=== PATIENT | female | born 1950 | race Caucasian/White ===

== ENCOUNTER 2021-07-22 08:03 | Inpatient (IN) ==
[2021-07-20 22:08] LABS: Basophils # (Auto) 0.03 K/mcL (0.00-0.30); Basophils % (Auto) 0.4 % (0.0-2.0); Eosinophils # (Auto) 0.06 K/mcL (0.00-0.70); Eosinophils % (Auto) 0.7 % (0.0-7.0); Hematocrit 37.4 % (34.1-44.9); Hemoglobin 11.3 g/dL (11.2-15.7); Lymphocytes # (Auto) 1.12 K/mcL (1.50-4.80); Lymphocytes % (Auto) 13.9 % (15.5-49.0); Mean Corpuscular HGB Conc 30.2 g/dL (31.0-36.0); Mean Platelet Volume 9.5 fL (7.4-10.4); Monocytes # (Auto) 0.62 K/mcL (0.10-0.90); Monocytes % (Auto) 7.7 % (1.0-12.0); Neutrophils % (Auto) 77.3 % (38.0-78.0); Platelet Count 239 K/mcL (140-440); RBC 4.35 M/mcL (3.59-5.38); Red Cell Distribution Width 14.9 % (11.5-14.5); WBC 8.1 K/mcL (4.5-11.0)
[2021-07-20 22:18] LABS: INR 2.6 (0.9-1.1); Partial Thromboplastin Time 44.9 sec (20.0-37.0); Prothrombin Time 29.4 sec (11.9-14.5)
[2021-07-20 22:48] LABS: ALT/SGPT 35 U/L (<40); AST/SGOT 25 U/L (<32); Albumin 3.7 gm/dL (3.2-5.2); Albumin/Globulin Ratio 1.3 (1.0-2.3); Alkaline Phosphatase 112 U/L (39-117); Bilirubin,Total 0.4 mg/dL (0.1-1.0); Blood Urea Nitrogen 11 mg/dL (8-23); Calcium 9.4 mg/dL (8.6-10.4); Carbon Dioxide 25 mmol/L (22-30); Chloride 106 mmol/L (96-108); Globulin 2.9 gm/dL (2.2-3.7); Glomerular Filtration Rate 57; Glucose 121 mg/dL (70-105)
[2021-07-20 23:09] LABS: Estimated Average Glucose(eAG) 163 mg/dL; Hemoglobin A1C 7.3 % Hgb (4.0-6.0)
--- NOTE | 2021-07-21 08:18 | XRay Report ---
HISTORY: Preop for excision of a right buttock necrotic mass FINDINGS: Prominent increased interstitial lung markings are present bilaterally, most apparent around the right hilum and in the right lower lobe. These are new findings since 01/15/21. There is no consolidating infiltrate or mass. No pleural effusion is present. The heart size is normal. Aorta is mildly tortuous. IMPRESSION: Mild nonspecific interstitial lung disease. This could be due to an inflammatory process and less likely pulmonary vascular congestion. This is unlikely due to pulmonary fibrosis since the lungs were clear six months ago. Interpreted and Authenticated by: Chino Morin 07/21/21
[~2021-07-22 08:03] MED LIST: CLINDAMYCIN 600 MG in DEXTROSE 5% IN WATER 50 ML IV SCH; VANCOMYCIN 2,000 MG in 0.9 % SODIUM CHLORIDE 500 ML IV SCH
[2021-07-22 08:58] LABS: POC INR 1.7 (0.8-1.2); POC Pro Time 19.6 sec (11.9-14.5)
[2021-07-22] MEDS ORDERED: GLYCOPYRROLATE 0.2 MG/ML VIAL IV ONE (09:15)
[2021-07-22] MEDS ORDERED: ESMOLOL 100 MG/10 ML VIAL IV ONE (09:15)
[2021-07-22] MEDS ORDERED: KETAMINE 50 MG/ML Syringe (ANEST) IV ONE (09:15)
[2021-07-22] MEDS ORDERED: ONDANSETRON 4 MG/2 ML VIAL ONE (09:15)
[2021-07-22] MEDS ORDERED: PROPOFOL 200 MG/20 ML VIAL IV ONE (09:15)
[2021-07-22] MEDS ORDERED: LIDOCAINE HCL/PF 100 MG/5 ML SYRINGE IV ONE (09:15)
[2021-07-22] MEDS ORDERED: DEXAMETHASONE 10 MG/ML VIAL ONE (09:15)
[2021-07-22] MEDS ORDERED: fentaNYL 250 MCG/5 ML VIAL IV ONE (09:15)
[2021-07-22] MEDS ORDERED: NALOXONE HCL 0.4 MG/ML VIAL IV PRN (09:35)
[2021-07-22] MEDS ORDERED: METHOCARBAMOL 1,000 MG/10 ML VIAL IV PRN (09:35)
[2021-07-22] MEDS ORDERED: LABETALOL 5 MG/ML ML IV PRN (09:35)
[2021-07-22] MEDS ORDERED: BENZOCAINE/MENTHOL 1 LOZENGE PO PRN (09:35)
[2021-07-22] MEDS ORDERED: IPRATROPIUM/ALBUTEROL 3 ML AMPUL.NEB NEB PRN (09:35)
[2021-07-22] MEDS ORDERED: ACETAMINOPHEN 1,000 MG/100 ML BAG IV ONE (09:35)
[2021-07-22] MEDS ORDERED: METOPROLOL TARTRATE 5 MG/5 ML VIAL IV PRN (09:35)
[2021-07-22] MEDS ORDERED: LACTATED RINGERS 250 ML IV PRN (09:35)
[2021-07-22] MEDS ORDERED: LACTATED RINGERS 1,000 ML IV SCH (09:45)
--- NOTE | 2021-07-22 10:02 | Brief Operative Note ---
Brief Operative Note Date of procedure: 07/22/21 Pre-op diagnosis: necrotic ulceration right medial buttock Post-op diagnosis: other (necrotic ulceration of right medial buttock) Procedure: excision of necrotic ulcerated mass( 6x4.5x4cm) right medial buttock Grafts/Implants: No Anesthesia: GLMA Findings: large mas with central necrosis extending up to ischial tuberosity with tract into right groin Complications: none Surgeon: Marizol Chong Estimated blood loss (cc): 20 Specimens Removed/Pathology: other (necrotic tissue from ulcerated mmass) Condition: stable Disposition: PACU
[2021-07-22] MEDS ORDERED: ONDANSETRON 4 MG/2 ML VIAL IV PRN (10:03)
[2021-07-22] MEDS ORDERED: VANCOMYCIN PER PHARMACY IV ONE (10:08)
[2021-07-22] MEDS ORDERED: ALBUTEROL SULFATE 200 PUFF INHALER INH PRN (10:13)
[2021-07-22] MEDS ORDERED: NON FORMULARY MEDICATION 1 DOSE MISCELL (Oxycodone-Acetaminophen 7.5-325 mg tablet) PO PRN (10:13)
[2021-07-22] MEDS ORDERED: DEXTROSE 31 GM ORAL.SUSP PO PRN (10:18)
[2021-07-22] MEDS ORDERED: DEXTROSE 50% 50 ML VIAL IV PRN (10:18)
[2021-07-22] MEDS: fentaNYL 100 MCG/2 ML VIAL IV PRN ×4 (10:19→10:30)
[2021-07-22] MEDS ORDERED: oxyCODONE HCL 5 MG TABLET PO PRN (10:27)
[2021-07-22] MEDS ORDERED: oxyCODONE/APAP 5/325MG TABLET PO PRN (10:27)
[2021-07-22] MEDS: HYDROmorphone 0.5 MG/0.5 ML SYRINGE IV PRN ×3 (10:34→17:28)
[2021-07-22] MEDS: 0.9 % SODIUM CHLORIDE 1,000 ML IV SCH (11:11)
[2021-07-22] MEDS: INSULIN LISPRO 1 UNIT/0.01 ML UNIT SQ SCH ×3 (11:14→21:33)
[2021-07-22] MEDS ORDERED: VANCOMYCIN PER PHARMACY IV SCH (11:30)
[2021-07-22] MEDS: CLINDAMYCIN 600 MG in DEXTROSE 5% IN WATER 50 ML IV SCH ×3 (12:36→23:51)
[2021-07-22] MEDS: 0.9 % SODIUM CHLORIDE 10 ML SYRINGE IV SCH ×2 (14:56→21:34)
[2021-07-22] MEDS: SENNOSIDES 1 TABLET PO SCH (21:33)
[2021-07-22] MEDS: ACETAMINOPHEN 325 MG TABLET PO PRN (21:33)
[2021-07-22] MEDS: DOCUSATE SODIUM 100 MG CAPSULE PO SCH (21:33)
[2021-07-22] MEDS: DILTIAZEM 120 MG CAP.XL.24H PO SCH (21:33)
[2021-07-22] MEDS ORDERED: ACETAMINOPHEN 325 MG TABLET PO ONE (21:34)
[2021-07-22] MEDS: VANCOMYCIN 1,500 MG in 0.9 % SODIUM CHLORIDE 500 ML IV SCH (21:34)
[2021-07-23] MEDS: ACETAMINOPHEN 325 MG TABLET PO PRN ×4 (04:28→19:36)
[2021-07-23] MEDS: 0.9 % SODIUM CHLORIDE 10 ML SYRINGE IV SCH ×4 (05:07→21:37)
[2021-07-23] MEDS: CLINDAMYCIN 600 MG in DEXTROSE 5% IN WATER 50 ML IV SCH ×3 (05:30→17:42)
[2021-07-23 06:39] LABS: INR 1.6 (0.9-1.1); Prothrombin Time 19.6 sec (11.9-14.5)
[2021-07-23] MEDS: PANTOPRAZOLE 40 MG PACKET PO SCH (06:56)
[2021-07-23] MEDS: LEVOTHYROXINE SODIUM 112 MCG TABLET PO SCH (06:56)
[2021-07-23] MEDS: INSULIN LISPRO 1 UNIT/0.01 ML UNIT SQ SCH ×4 (07:02→20:46)
[2021-07-23] MEDS: DOCUSATE SODIUM 100 MG CAPSULE PO SCH ×2 (09:08→20:46)
[2021-07-23] MEDS: predniSONE 20 MG TABLET PO SCH (09:08)
[2021-07-23] MEDS: DILTIAZEM 120 MG CAP.XL.24H PO SCH ×2 (09:08→20:46)
[2021-07-23] MEDS: VANCOMYCIN 1,500 MG in 0.9 % SODIUM CHLORIDE 500 ML IV SCH ×2 (10:16→21:04)
[2021-07-23] MEDS: 0.9 % SODIUM CHLORIDE 1,000 ML IV SCH (10:40)
--- NOTE | 2021-07-23 14:06 | Surgical Pathology Report ---
Histology Microscopic Diagnosis Specimen A- SOFT TISSUE, RIGHT BACK, EXCISION: --- FIBROVASCULAR AND MATURE ADIPOSE TISSUE WITH ACUTE INFLAMMATION, FIBROSIS AND EXTENSIVE NECROSIS. (RLF) Clinical History Perianal mass. Gross Description Received in formalin labeled with the patient information and designated as necrotic mass right back, are two portions of yellow-smith to angel-smith tissue. The angel-smith fragment is 3.2 x 2.4 x 0.8 cm and the yellow-smith fatty fragment is 3.7 x 2.7 x 1.5 cm. Reprint portions submitted in one cassette. (K[facility]:adj) Electronically Signed Blanca Silva MD, FCAP Electronically Signed 07/23/2021 14:05
--- NOTE | 2021-07-23 16:41 | General Surgery Progress Note ---
SUBJECTIVE Subjective Patient information: Note initiated : 07/23/21 at 4:41 pm Service Date, if different from initiated Date: [] Patient: Jannie Cid 71 y/o F admitted on 07/22/21 for Excision Right Necrotic Buttock Mass. Chief Complaint: [] Interval history: Patient continues to do well. There is minimal drainage in the wound and the base is granulating in nicely. Constitutional Vitals: Vital Signs Temp Pulse Resp BP Pulse Ox 97.9 F 74 14 135/62 93 07/23/21 12:00 07/23/21 12:00 07/23/21 12:00 07/23/21 12:00 07/23/21 12:00 Period Temp Pulse Resp BP Sys/Guillermo Pulse Ox Last 24 Hr 96.6 F-98.4 F 57-91 12-16 118-135/62-78 93-97 Intake and Output 07/23/21 07/23/21 07/23/21 05:59 13:59 21:59 Intake Total 604 1058 Output Total 950 750 Balance -346 308 Weight 313 lb Patient Weight 07/24/21 05:59 Weight 313 lb Intake & Output: Intake & Output 07/23/21 07/23/21 07/23/21 05:59 13:59 21:59 Intake Total 604 1058 Output Total 950 750 Balance -346 308 Weight 313 lb Intake: IV 554 608 Cleocin 600 mg In Dextrose 5% 54 108 in Water 50 ml @ 100 mls/hr IV Q6H [facility] Rx#:[id number] Vancomycin 1,500 mg In Sodium 500 500 Chloride 0.9% 500 ml @ 333.3 mls/hr IV Q12H [facility] Rx#: [id number] Oral 50 450 Output: Void Amount 950 750 Other: Meal Lunch Percent of Meal Consumed 100% Feeding Ability Independent Urine Appearance Clear Urine Color Bright Yellow Stool Size Moderate Stool Color Brown Stool Consistency Soft # Bowel Movements 1 Respiratory Respiratory exam: Present normal respiratory exam and CTAB; Absent wheezes Cardiovascular Cardiovascular exam: Present normal rate and rhythm, RRR, +S1 and +S2; Absent JVD GI/Abdominal GI/Abdominal exam: Present normal bowel sounds and soft Extremities Exam Extremities exam: Present full ROM; Absent pedal edema and tenderness Neurological Exam Neurological exam: Present alert, normal gait and oriented X3 Skin Additional comments: Healing operative site right medial upper thigh with decreased cellulitis and induration A/P Assessment and plan (1) Abscess of right thigh: Status: Acute (2) Diabetes mellitus: Status: Acute (3) nursing home current use of anticoagulant therapy: Status: Acute (4) Cellulitis of groin, right: Status: Acute Narrative A/P Narrative: Continue present therapy including antibiotics Make arrangements for placement of wound VAC on Tuesday with probable discharge home Time Spent With Patient Time: Total time spent is greater than 50% in coordination of care (as documented) at patient's floor/unit and/or counseling patient:
[2021-07-23] MEDS: SENNOSIDES 1 TABLET PO SCH (20:46)
[2021-07-24] MEDS: ACETAMINOPHEN 325 MG TABLET PO PRN ×4 (00:10→20:38)
[2021-07-24] MEDS: CLINDAMYCIN 600 MG in DEXTROSE 5% IN WATER 50 ML IV SCH ×5 (00:10→23:36)
[2021-07-24] MEDS: 0.9 % SODIUM CHLORIDE 10 ML SYRINGE IV SCH ×3 (05:30→20:40)
[2021-07-24 07:45] LABS: INR 1.3 (0.9-1.1); Prothrombin Time 16.7 sec (11.9-14.5)
[2021-07-24] MEDS: predniSONE 20 MG TABLET PO SCH (08:06)
[2021-07-24] MEDS: INSULIN LISPRO 1 UNIT/0.01 ML UNIT SQ SCH ×4 (08:06→20:48)
[2021-07-24] MEDS: DOCUSATE SODIUM 100 MG CAPSULE PO SCH ×2 (08:06→20:38)
[2021-07-24] MEDS: DILTIAZEM 120 MG CAP.XL.24H PO SCH ×2 (08:07→20:38)
[2021-07-24] MEDS: VANCOMYCIN 1,500 MG in 0.9 % SODIUM CHLORIDE 500 ML IV SCH ×2 (08:07→20:40)
[2021-07-24] MEDS: LEVOTHYROXINE SODIUM 112 MCG TABLET PO SCH (08:07)
[2021-07-24] MEDS: PANTOPRAZOLE 40 MG PACKET PO SCH (08:07)
--- NOTE | 2021-07-24 11:06 | General Surgery Progress Note ---
SUBJECTIVE Subjective Patient information: Note initiated : 07/24/21 at 11:00 am Service Date, if different from initiated Date: [] Patient: Jannie Cid 71 y/o F admitted on 07/22/21 for Excision Right Necrotic Buttock Mass. Chief Complaint: [] Principal diagnosis: Abscess right medial thigh Interval history: Patient continues to do well. She is afebrile. Pain in her right medial thigh is controlled. There is minimal drainage. Wound was checked. She will need to have dressing changed today. Constitutional Vitals: Vital Signs Temp Pulse Resp BP Pulse Ox 98.8 F 100 H 15 133/74 97 07/24/21 06:41 07/24/21 08:50 07/24/21 08:50 07/24/21 06:41 07/24/21 06:41 Period Temp Pulse Resp BP Sys/Guillermo Pulse Ox Last 24 Hr 97.3 F-98.8 F 61-100 14-20 109-147/60-75 93-97 Intake and Output 07/23/21 07/24/21 07/24/21 21:59 05:59 13:59 Intake Total 854 1874 534 Output Total 1500 Balance 854 374 534 Weight 315 lb 5 oz Intake & Output: Intake & Output 07/23/21 07/24/21 07/24/21 21:59 05:59 13:59 Intake Total 854 1874 534 Output Total 1500 Balance 854 374 534 Weight 315 lb 5 oz Intake: IV 54 554 54 Cleocin 600 mg In Dextrose 5% 54 54 54 in Water 50 ml @ 100 mls/hr IV Q6H [facility] Rx#:[id number] Vancomycin 1,500 mg In Sodium 500 Chloride 0.9% 500 ml @ 333.3 mls/hr IV Q12H [facility] Rx#: [id number] Oral 800 1320 480 Output: Void Amount 1500 Other: Meal Breakfast Percent of Meal Consumed 100% Feeding Ability Independent Urine Appearance Clear Urine Color Pale # Voids 1 Respiratory Respiratory exam: Present normal respiratory exam and CTAB; Absent wheezes Cardiovascular Cardiovascular exam: Present normal rate and rhythm, RRR, +S1 and +S2; Absent JVD GI/Abdominal GI/Abdominal exam: Present normal bowel sounds and soft Rectal Additional comments: Wound of right upper medial thigh posteriorly has a clean base with minimal drainage Extremities Exam Extremities exam: Present full ROM; Absent pedal edema and tenderness Neurological Exam Neurological exam: Present alert, normal gait and oriented X3 Psychiatric Psychiatric exam: Present normal affect and normal mood A/P Assessment and plan (1) Perianal mass: Status: Acute (2) Cellulitis of groin, right: Status: Acute (3) Diabetes mellitus: Status: Acute (4) [facility] current use of anticoagulant therapy: Status: Acute (5) Obstructive sleep apnea: Status: Acute Narrative A/P Narrative: Continue present therapy We will consider trial of wound VAC therapy if it can be managed at home Time Spent With Patient Time: Total time spent is greater than 50% in coordination of care (as documented) at patient's floor/unit and/or counseling patient:
[2021-07-24] MEDS: 0.9 % SODIUM CHLORIDE 1,000 ML IV SCH (13:07)
[2021-07-24] MEDS: SENNOSIDES 1 TABLET PO SCH (20:39)
[2021-07-25] MEDS: ACETAMINOPHEN 325 MG TABLET PO PRN ×2 (03:15→09:25)
[2021-07-25] MEDS: 0.9 % SODIUM CHLORIDE 10 ML SYRINGE IV SCH ×3 (04:29→20:30)
[2021-07-25] MEDS: CLINDAMYCIN 600 MG in DEXTROSE 5% IN WATER 50 ML IV SCH ×4 (05:13→23:28)
[2021-07-25] MEDS: PANTOPRAZOLE 40 MG PACKET PO SCH (07:19)
[2021-07-25] MEDS: LEVOTHYROXINE SODIUM 112 MCG TABLET PO SCH (07:19)
[2021-07-25] MEDS: INSULIN LISPRO 1 UNIT/0.01 ML UNIT SQ SCH ×4 (07:24→20:36)
[2021-07-25 07:54] LABS: Basophils # (Auto) 0.02 K/mcL (0.00-0.30); Basophils % (Auto) 0.3 % (0.0-2.0); Eosinophils # (Auto) 0.04 K/mcL (0.00-0.70); Eosinophils % (Auto) 0.6 % (0.0-7.0); Hematocrit 35.7 % (34.1-44.9); Hemoglobin 10.8 g/dL (11.2-15.7); Lymphocytes # (Auto) 1.33 K/mcL (1.50-4.80); Lymphocytes % (Auto) 18.5 % (15.5-49.0); Mean Cell Volume 86.9 fL (80.0-100.0); Mean Corpuscular HGB Conc 30.3 g/dL (31.0-36.0); Mean Platelet Volume 9.8 fL (7.4-10.4); Monocytes # (Auto) 0.69 K/mcL (0.10-0.90); Monocytes % (Auto) 9.6 % (1.0-12.0); Platelet Count 208 K/mcL (140-440); RBC 4.11 M/mcL (3.59-5.38); Red Cell Distribution Width 15.6 % (11.5-14.5); WBC 7.2 K/mcL (4.5-11.0)
[2021-07-25 08:32] LABS: INR 1.2 (0.9-1.1); Prothrombin Time 15.5 sec (11.9-14.5)
[2021-07-25] MEDS: DILTIAZEM 120 MG CAP.XL.24H PO SCH ×2 (09:25→20:36)
[2021-07-25] MEDS: DOCUSATE SODIUM 100 MG CAPSULE PO SCH ×3 (09:25→20:48)
[2021-07-25] MEDS: predniSONE 20 MG TABLET PO SCH (09:25)
[2021-07-25] MEDS: VANCOMYCIN 1,500 MG in 0.9 % SODIUM CHLORIDE 500 ML IV SCH ×2 (09:27→20:35)
[2021-07-25] MEDS: 0.9 % SODIUM CHLORIDE 1,000 ML IV SCH (09:29)
--- NOTE | 2021-07-25 13:27 | General Surgery Progress Note ---
SUBJECTIVE Subjective Patient information: Note initiated : 07/25/21 at 1:24 pm Service Date, if different from initiated Date: [] Patient: Jannie Cid 71 y/o F admitted on 07/22/21 for Excision Right Necrotic Buttock Mass. Chief Complaint: [] Principal diagnosis: Abscess right medial thigh Interval history: Patient continues to do well. She is afebrile. Her right upper thigh buttock lesion is clean with minimal drainage. White blood count is normal. Pathology on the excised tissue only shows acute inflammation with necrosis of the fat. Constitutional Vitals: Vital Signs Temp Pulse Resp BP Pulse Ox 97 F 74 16 120/68 93 07/25/21 12:00 07/25/21 12:00 07/25/21 12:00 07/25/21 12:00 07/25/21 12:00 Period Temp Pulse Resp BP Sys/Guillermo Pulse Ox Last 24 Hr 96.6 F-98 F 73-98 16-22 120-156/68-93 93-96 Intake and Output 07/24/21 07/25/21 07/25/21 21:59 05:59 13:59 Intake Total 108 908 534 Output Total 1 Balance 108 907 534 Weight 317 lb 9.6 oz Intake & Output: Intake & Output 07/24/21 07/25/21 07/25/21 21:59 05:59 13:59 Intake Total 108 908 534 Output Total 1 Balance 108 907 534 Weight 317 lb 9.6 oz Intake: IV 108 608 54 Cleocin 600 mg In Dextrose 5% 108 108 54 in Water 50 ml @ 100 mls/hr IV Q6H [facility] Rx#:[id number] Vancomycin 1,500 mg In Sodium 500 Chloride 0.9% 500 ml @ 333.3 mls/hr IV Q12H [facility] Rx#: [id number] Oral 300 480 Output: # of times incontinent of urine 1 Other: Meal Breakfast Percent of Meal Consumed 100% Feeding Ability Independent Stool Size Large Large Stool Color Brown Brown Stool Consistency Soft Soft Loose # Voids 1 1 1 # Bowel Movements 1 2 Respiratory Respiratory exam: Present normal respiratory exam and CTAB; Absent wheezes Cardiovascular Cardiovascular exam: Present normal rate and rhythm, RRR, +S1 and +S2; Absent JVD GI/Abdominal GI/Abdominal exam: Present normal bowel sounds and soft Extremities Exam Extremities exam: Present full ROM; Absent pedal edema and tenderness Neurological Exam Neurological exam: Present alert, normal gait and oriented X3 Psychiatric Psychiatric exam: Present normal affect and normal mood A/P Assessment and plan (1) Cellulitis of groin, right: Status: Acute (2) Perianal mass: Status: Acute (3) Diabetes mellitus: Status: Acute (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
[2021-07-25] MEDS: SENNOSIDES 1 TABLET PO SCH (20:29)
[2021-07-26] MEDS: ACETAMINOPHEN 325 MG TABLET PO PRN ×3 (01:08→22:14)
[2021-07-26] MEDS: CLINDAMYCIN 600 MG in DEXTROSE 5% IN WATER 50 ML IV SCH ×3 (05:42→18:09)
[2021-07-26] MEDS: 0.9 % SODIUM CHLORIDE 10 ML SYRINGE IV SCH ×3 (05:51→21:43)
[2021-07-26 07:37] LABS: Basophils # (Auto) 0.02 K/mcL (0.00-0.30); Basophils % (Auto) 0.3 % (0.0-2.0); Eosinophils # (Auto) 0.05 K/mcL (0.00-0.70); Eosinophils % (Auto) 0.7 % (0.0-7.0); Hematocrit 35.9 % (34.1-44.9); Hemoglobin 10.7 g/dL (11.2-15.7); Lymphocytes # (Auto) 1.24 K/mcL (1.50-4.80); Lymphocytes % (Auto) 17.7 % (15.5-49.0); Mean Corpuscular HGB Conc 29.8 g/dL (31.0-36.0); Monocytes # (Auto) 0.67 K/mcL (0.10-0.90); Monocytes % (Auto) 9.6 % (1.0-12.0); Neutrophils % (Auto) 71.7 % (38.0-78.0); Platelet Count 191 K/mcL (140-440); RBC 4.08 M/mcL (3.59-5.38); Red Cell Distribution Width 15.9 % (11.5-14.5)
[2021-07-26] MEDS: predniSONE 20 MG TABLET PO SCH (07:47)
[2021-07-26] MEDS: PANTOPRAZOLE 40 MG PACKET PO SCH (07:47)
[2021-07-26] MEDS: LEVOTHYROXINE SODIUM 112 MCG TABLET PO SCH (07:47)
[2021-07-26] MEDS: INSULIN LISPRO 1 UNIT/0.01 ML UNIT SQ SCH ×4 (07:53→21:38)
[2021-07-26] MEDS: VANCOMYCIN 1,500 MG in 0.9 % SODIUM CHLORIDE 500 ML IV SCH ×2 (08:12→21:38)
[2021-07-26] MEDS: DOCUSATE SODIUM 100 MG CAPSULE PO SCH ×2 (08:12→21:28)
[2021-07-26] MEDS: DILTIAZEM 120 MG CAP.XL.24H PO SCH ×2 (08:12→21:38)
[2021-07-26] MEDS: 0.9 % SODIUM CHLORIDE 1,000 ML IV SCH (11:09)
--- NOTE | 2021-07-26 13:56 | General Surgery Progress Note ---
SUBJECTIVE Subjective Patient information: Note initiated : 07/26/21 at 1:53 pm Service Date, if different from initiated Date: [] Patient: Jannie Cid 71 y/o F admitted on 07/22/21 for Excision Right Necrotic Buttock Mass. Chief Complaint: [] Principal diagnosis: Abscess right medial thigh Interval history: Patient is doing well and her wound continues to improve. She has decreased drainage and significantly decreased induration. White blood count 7 hemoglobin 10.7 Constitutional Vitals: Vital Signs Temp Pulse Resp BP Pulse Ox 96.8 F L 81 22 142/76 94 07/26/21 11:27 07/26/21 11:27 07/26/21 11:27 07/26/21 11:27 07/26/21 11:27 Period Temp Pulse Resp BP Sys/Guillermo Pulse Ox Last 24 Hr 96.8 F-98 F 56-92 16-22 125-168/66-89 94-98 Intake and Output 07/25/21 07/26/21 07/26/21 21:59 05:59 13:59 Intake Total 920 624 1298 Balance 663 237 1306 Weight 312 lb Intake & Output: Intake & Output 07/25/21 07/26/21 07/26/21 21:59 05:59 13:59 Intake Total 927 610 2905 Balance 005 204 7362 Weight 312 lb Intake: IV 54 554 1208 Sodium Chloride 0.9% 1,000 ml @ 600 25 mls/hr IV .Q24H [facility] Rx#: [id number] Cleocin 600 mg In Dextrose 5% 54 54 108 in Water 50 ml @ 100 mls/hr IV Q6H [facility] Rx#:[id number] Vancomycin 1,500 mg In Sodium 500 500 Chloride 0.9% 500 ml @ 333.3 mls/hr IV Q12H [facility] Rx#: [id number] Oral 337 724 7954 Other: Meal Lunch Lunch Percent of Meal Consumed 100% 100% Feeding Ability Independent Independent Urine Appearance Clear Clear Urine Color Pale Pale Stool Size Moderate Stool Color Brown Stool Consistency Liquid # Voids 4 1 # Bowel Movements 0 1 Respiratory Respiratory exam: Present normal respiratory exam and CTAB; Absent wheezes Cardiovascular Cardiovascular exam: Present normal rate and rhythm, RRR, +S1 and +S2; Absent JVD GI/Abdominal GI/Abdominal exam: Present normal bowel sounds and soft Rectal Additional comments: Wound of right upper medial thigh posteriorly has a clean base with minimal drainage Extremities Exam Extremities exam: Present full ROM; Absent pedal edema and tenderness Neurological Exam Neurological exam: Present alert, normal gait and oriented X3 Psychiatric Psychiatric exam: Present normal affect and normal mood A/P Assessment and plan (1) Abscess of right thigh: Status: Acute (2) Diabetes mellitus: Status: Acute (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
[2021-07-26] MEDS: SENNOSIDES 1 TABLET PO SCH (21:29)
[2021-07-27] MEDS: CLINDAMYCIN 600 MG in DEXTROSE 5% IN WATER 50 ML IV SCH ×5 (00:42→23:09)
[2021-07-27] MEDS: 0.9 % SODIUM CHLORIDE 1,000 ML IV SCH ×2 (03:33→10:57)
[2021-07-27] MEDS: LEVOTHYROXINE SODIUM 112 MCG TABLET PO SCH (05:53)
[2021-07-27] MEDS: 0.9 % SODIUM CHLORIDE 10 ML SYRINGE IV SCH ×3 (05:53→21:46)
[2021-07-27 06:54] LABS: Basophils # (Auto) 0.03 K/mcL (0.00-0.30); Basophils % (Auto) 0.5 % (0.0-2.0); Eosinophils # (Auto) 0.08 K/mcL (0.00-0.70); Eosinophils % (Auto) 1.2 % (0.0-7.0); Hematocrit 36.6 % (34.1-44.9); Lymphocytes % (Auto) 21.1 % (15.5-49.0); Mean Cell Volume 87.8 fL (80.0-100.0); Mean Corpuscular HGB Conc 30.1 g/dL (31.0-36.0); Mean Platelet Volume 9.8 fL (7.4-10.4); Monocytes # (Auto) 0.56 K/mcL (0.10-0.90); Monocytes % (Auto) 8.5 % (1.0-12.0); Neutrophils % (Auto) 68.7 % (38.0-78.0); Platelet Count 181 K/mcL (140-440); RBC 4.17 M/mcL (3.59-5.38); Red Cell Distribution Width 15.7 % (11.5-14.5); WBC 6.6 K/mcL (4.5-11.0)
[2021-07-27] MEDS: predniSONE 20 MG TABLET PO SCH (07:45)
[2021-07-27] MEDS: PANTOPRAZOLE 40 MG PACKET PO SCH (07:45)
[2021-07-27] MEDS: INSULIN LISPRO 1 UNIT/0.01 ML UNIT SQ SCH ×4 (07:46→20:47)
[2021-07-27] MEDS: DOCUSATE SODIUM 100 MG CAPSULE PO SCH ×2 (08:41→20:47)
[2021-07-27] MEDS: DILTIAZEM 120 MG CAP.XL.24H PO SCH ×2 (08:41→20:47)
--- NOTE | 2021-07-27 12:51 | General Surgery Progress Note ---
SUBJECTIVE Subjective Patient information: Note initiated : 07/27/21 at 12:48 pm Service Date, if different from initiated Date: [] Patient: Jannie Cid 71 y/o F admitted on 07/22/21 for Excision Right Necrotic Buttock Mass. Chief Complaint: [] Principal diagnosis: Abscess right medial thigh Interval history: Patient is doing well. Wound base is clean. She has minimal purulence and she has good granulation. There is no increase in surrounding induration or cellulitis. Constitutional Vitals: Vital Signs Temp Pulse Resp BP Pulse Ox 97.8 F 78 18 143/72 96 07/27/21 11:50 07/27/21 11:50 07/27/21 11:50 07/27/21 11:50 07/27/21 11:50 Period Temp Pulse Resp BP Sys/Guillermo Pulse Ox Last 24 Hr 97.2 F-97.8 F 61-78 16-20 137-165/70-83 94-99 Intake and Output 07/26/21 07/27/21 07/27/21 21:59 05:59 13:59 Intake Total 554 1254 108 Balance 554 1254 108 Weight 300 lb 7 oz Intake & Output: Intake & Output 07/26/21 07/27/21 07/27/21 21:59 05:59 13:59 Intake Total 554 1254 108 Balance 554 1254 108 Weight 300 lb 7 oz Intake: IV 54 954 108 Sodium Chloride 0.9% 1,000 ml @ 400 25 mls/hr IV .Q24H [facility] Rx#: [id number] Cleocin 600 mg In Dextrose 5% 54 54 108 in Water 50 ml @ 100 mls/hr IV Q6H [facility] Rx#:[id number] Vancomycin 1,500 mg In Sodium 500 Chloride 0.9% 500 ml @ 333.3 mls/hr IV Q12H [facility] Rx#: [id number] Oral 500 300 Other: Meal Dinner Percent of Meal Consumed 100% # Voids 1 1 Respiratory Respiratory exam: Present normal respiratory exam and CTAB; Absent wheezes Cardiovascular Cardiovascular exam: Present normal rate and rhythm, RRR, +S1 and +S2; Absent JVD GI/Abdominal GI/Abdominal exam: Present normal bowel sounds and soft Rectal Additional comments: Wound of right upper medial thigh posteriorly has a clean base with minimal drainage Extremities Exam Extremities exam: Present full ROM; Absent pedal edema and tenderness Neurological Exam Neurological exam: Present alert, normal gait and oriented X3 A/P Assessment and plan (1) Abscess of right thigh: Status: Acute (2) Diabetes mellitus: Status: Acute (3) prison current use of anticoagulant therapy: Status: Acute (4) Cellulitis of groin, right: Status: Acute Narrative A/P Narrative: Continue present therapy including antibiotics Make arrangements for placement of wound VAC on Tuesday with probable discharge home Time Spent With Patient Time: Total time spent is greater than 50% in coordination of care (as documented) at patient's floor/unit and/or counseling patient:
[2021-07-27] MEDS: ACETAMINOPHEN 325 MG TABLET PO PRN ×2 (14:27→21:52)
[2021-07-27] MEDS: SENNOSIDES 1 TABLET PO SCH (20:47)
[2021-07-28] MEDS: 0.9 % SODIUM CHLORIDE 10 ML SYRINGE IV SCH ×3 (05:21→20:41)
[2021-07-28] MEDS: CLINDAMYCIN 600 MG in DEXTROSE 5% IN WATER 50 ML IV SCH ×4 (05:21→23:21)
[2021-07-28] MEDS: LEVOTHYROXINE SODIUM 112 MCG TABLET PO SCH (06:00)
[2021-07-28 07:16] LABS: POC Blood Urea Nitrogen 15 mg/dL (6-20); POC CO2 29 mmol/L (22-30); POC Calcium, Ionized 1.16 mmEq/L (1.16-1.32); POC Chloride 99 mEq/L (96-108); POC Creatinine 0.8 mg/dL (0.6-1.2); POC Glucose, Random 127 mg/dL (70-105); POC Hematocrit 35 % (36-48); POC Potassium 3.6 mEql/L (3.3-5.1); POC Sodium 141 mEq/L (133-145)
[2021-07-28 07:30] LABS: Vancomycin,Random 8.5 ug/mL
[2021-07-28] MEDS: predniSONE 20 MG TABLET PO SCH (07:48)
[2021-07-28] MEDS: PANTOPRAZOLE 40 MG PACKET PO SCH (07:48)
[2021-07-28] MEDS: INSULIN LISPRO 1 UNIT/0.01 ML UNIT SQ SCH ×4 (07:49→20:39)
[2021-07-28] MEDS: DILTIAZEM 120 MG CAP.XL.24H PO SCH ×2 (10:17→20:39)
[2021-07-28] MEDS: VANCOMYCIN 1,500 MG in 0.9 % SODIUM CHLORIDE 500 ML IV SCH (10:17)
[2021-07-28] MEDS: DOCUSATE SODIUM 100 MG CAPSULE PO SCH ×2 (10:18→20:39)
[2021-07-28] MEDS: 0.9 % SODIUM CHLORIDE 1,000 ML IV SCH (11:59)
--- NOTE | 2021-07-28 12:29 | EKG ---
[facility] Test Date: 2021-07-20 Pat Name: Jannie Cid Department: [facility] Room: Gender: Female [place]: : 1950 Requested By: Marizol Chong Order Number: [id number] Reading MD: Corbin Small Measurements Intervals [place] Rate: 94 P: CT: QRS: -24 QRSD: 82 T: 6 QT: 372 QTc: 466 Interpretive Statements ATRIAL FIBRILLATION, V-RATE 60-135 PROBABLE INFERIOR INFARCT, AGE INDETERMINATE Poor R wave progression with lateral Q waves; consider remote inferolateral GA Electronically Signed On 07-28-2021 12:29:40 PDT by Corbin Small /store/[email or web address]/[id number]/[id number]
--- NOTE | 2021-07-28 17:23 | General Surgery Progress Note ---
SUBJECTIVE Subjective Patient information: Note initiated : 07/28/21 at 5:21 pm Service Date, if different from initiated Date: [] Patient: Jannie Cid 71 y/o F admitted on 07/22/21 for Excision Right Necrotic Buttock Mass. Chief Complaint: [] Principal diagnosis: Abscess right medial thigh Interval history: Patient is doing well and her wound is healing nicely. We are waiting for wound VAC placement prior to discharge Constitutional Vitals: Vital Signs Temp Pulse Resp BP Pulse Ox 98.1 F 77 20 165/60 95 07/28/21 12:00 07/28/21 12:00 07/28/21 12:00 07/28/21 12:00 07/28/21 12:00 Period Temp Pulse Resp BP Sys/Guillermo Pulse Ox Last 24 Hr 96.4 F-98.1 F 65-81 12-20 133-165/60-91 95-97 Intake and Output 07/28/21 07/28/21 07/28/21 05:59 13:59 21:59 Intake Total 1108 Balance 1108 Intake & Output: Intake & Output 07/28/21 07/28/21 07/28/21 05:59 13:59 21:59 Intake Total 1108 Balance 1108 Intake: IV 108 Cleocin 600 mg In Dextrose 5% 108 in Water 50 ml @ 100 mls/hr IV Q6H [facility] Rx#:[id number] Oral 1000 Other: Meal Lunch Percent of Meal Consumed 100% Stool Size Small Stool Color Brown Yellow Stool Consistency Loose # Voids 1 1 2 # Bowel Movements 1 Respiratory Respiratory exam: Present normal respiratory exam and CTAB; Absent wheezes Cardiovascular Cardiovascular exam: Present normal rate and rhythm, RRR, +S1 and +S2; Absent JVD GI/Abdominal GI/Abdominal exam: Present normal bowel sounds and soft Extremities Exam Extremities exam: Present full ROM; Absent pedal edema and tenderness Neurological Exam Neurological exam: Present alert, normal gait and oriented X3 Psychiatric Psychiatric exam: Present normal affect and normal mood A/P Assessment and plan (1) Abscess of right thigh: Status: Acute (2) Diabetes mellitus: Status: Acute (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
[2021-07-28] MEDS: SENNOSIDES 1 TABLET PO SCH (20:40)
[2021-07-28] MEDS: ACETAMINOPHEN 325 MG TABLET PO PRN (22:24)
[2021-07-29] MEDS: 0.9 % SODIUM CHLORIDE 1,000 ML IV SCH (05:16)
[2021-07-29] MEDS: 0.9 % SODIUM CHLORIDE 10 ML SYRINGE IV SCH ×2 (05:16→13:50)
[2021-07-29] MEDS: CLINDAMYCIN 600 MG in DEXTROSE 5% IN WATER 50 ML IV SCH (05:16)
[2021-07-29] MEDS: LEVOTHYROXINE SODIUM 112 MCG TABLET PO SCH (05:48)
[2021-07-29] MEDS: PANTOPRAZOLE 40 MG PACKET PO SCH (07:10)
[2021-07-29] MEDS: INSULIN LISPRO 1 UNIT/0.01 ML UNIT SQ SCH ×2 (07:13→12:13)
[2021-07-29] MEDS: predniSONE 20 MG TABLET PO SCH (08:38)
[2021-07-29] MEDS: DILTIAZEM 120 MG CAP.XL.24H PO SCH (08:38)
[2021-07-29] MEDS: VANCOMYCIN 1,500 MG in 0.9 % SODIUM CHLORIDE 500 ML IV SCH (08:38)
[2021-07-29] MEDS: DOCUSATE SODIUM 100 MG CAPSULE PO SCH (08:38)
--- NOTE | 2021-07-29 12:39 | Discharge Summary ---
Discharge Provider Provider Patient information: Note initiated : 07/29/21 at 12:31 pm Service Date, if different from initiated Date: [] Patient: Jannie Cid 71 y/o F admitted on 07/22/21 for Excision Right Necrotic Buttock Mass. Chief Complaint: [] Date of admission: 07/22/21 11:00 Discharge date: 07/29/21 Primary care physician: Scotty Meyers MD Admitting clinician: Marizol Chong Attending physician on admission: Marizol Chong Attending physician on discharge: Marizol Chong Discharging clinician: Marizol Chong COURSE Hospital Course Hospital course: 71-year-old female with history of inflammatory mass of her right medial buttock and upper thigh starting around 06 July 2021. She was seen in the emergency room and treated but the mass became more infectious with necrosis. She had wide excision of the area under anesthesia on 22 July and was admitted postoperatively. She has been on IV antibiotics since that time and the wound is cleaned up nicely. She now has minimal inflammation but has a deep granulating cavity with tunneling. Wound VAC was placed today and the patient is stable for discharge home. Discharge diagnosis: Necrotic mass and abscess right thigh and buttock Secondary discharge diagnosis: Diabetes mellitus History of atrial fibrillation Gastroesophageal reflux disease Hypertension Reason for admission: Necrotic mass right thigh Procedures: Wide excision and debridement necrotic mass and abscess right thigh 22 July 2021 Pertinent studies/significant findings: None none Complications: None Time Spent with Patient Time attestation: Total time spent providing and/or coordinating discharge services: Physical Examination Vital Signs Vital signs: Temp Pulse Resp BP Pulse Ox 96.8 F L 70 18 157/79 95 07/29/21 08:00 07/29/21 08:00 07/29/21 08:00 07/29/21 08:00 07/29/21 08:00 General physical appearance General physical exam: well developed, well nourished and no distress Eyes Eye exam: PERRL and normal ocular movement ENT ENT exam: normal nares, normal mucosa and no hearing loss Head Head exam IM: Present atraumatic, normal inspection and normocephalic Neck Neck exam: no masses, no bruits, trachea midline, no lymphadenopathy and no venous distension Cardiovascular Cardiovascular exam IM: Present +S1 and +S2; Absent irregular rhythm and JVD Respiratory Respiratory exam: normal expansion, normal respiratory effort and clear to auscultation Abdomen Abdomen: Present soft, non tender and bowel sounds Integumentary Integumentary: Present no rash, no growths, no abnormal pigmentation and other (The ulcer right upper medial thigh) Neurologic Neurologic: Present normal coordination and normal sensation Musculoskeletal Musculoskeletal: Present normal gait and normal posture Psychiatric Psychiatric: Present oriented to time, oriented to person, oriented to place, speech is normal and memory intact Discharge Plan Patient/Caregiver Discharge Instructions Activity: increase activity as tolerated Diet: Consistent Carbohydrate Prescriptions: Continued (DME) Contour Next Test Strips Strip See Rx Instructions .ROUTE .MEDSUPPLY Qty: 200 RF: 1 albuterol sulfate [Ventolin HFA] 90 mcg/actuation HFA aerosol inhaler 2 puff inhalation Q4-6H PRN (Reason: shortness of breath or wheezing) Qty: 8.5 RF: 0 oxycodone-acetaminophen 7.5-325 mg tablet 1 tab PO Q6H PRN (Reason: pain) Qty: 60 RF: 0 lidocaine 5 % ointment 1 applic topical QID PRN (Reason: pain) Qty: 60 RF: 2 levothyroxine 112 mcg tablet 112 mcg PO QDAY Qty: 90 RF: 3 omeprazole magnesium [Prilosec OTC] 20 mg tablet,delayed release (DR/EC) 20 mg PO QDAY PRN (Reason: GERD) Qty: 90 RF: 3 prednisone 20 mg tablet 40 mg PO QDAY Qty: 10 RF: 0 atorvastatin 40 mg tablet 40 mg PO QDAY RF: 0 warfarin 5 mg tablet 5 - 7.5 mg PO QDAY RF: 0 Bystolic 10 mg tablet 10 mg PO HS RF: 0 Victoza 3-Satish 0.6 mg/0.1 mL (18 mg/3 mL) pen injector 1.8 mg SUB-Q QDAY RF: 0 meclizine 25 mg tablet 25 mg PO QDAY PRN (Reason: Dizziness) RF: 0 cholecalciferol (vitamin D3) 25 mcg (1,000 unit) capsule 25 mcg PO QDAY RF: 0 CinSulin 1 cap PO QDAY RF: 0 levofloxacin 250 mg tablet 250 mg PO QDAY Qty: 9 RF: 0 diltiazem HCl 120 mg capsule,ext.rel 24h degradable 120 mg PO BID Qty: 180 RF: 2 clindamycin HCl 300 mg capsule 300 mg PO Q6H Qty: 40 RF: 0 cyanocobalamin (vitamin B-12) Tablet,Chewable 1 tab PO QDAY RF: 0 Megared Adv Total Body Refresh 795-300-592-30 mg Capsule 1 cap PO QDAY RF: 0 atenolol 25 mg Tablet 25 mg PO QDAY RF: 0 Other Ambulatory Orders: Wound Care Instructions (CONT) Location: None Selected Ordered By: Marizol Chong Follow Up Plan Follow up with: Marizol Chong MD [Physician] - 08/06/21 8:30 am Patient Disposition: Home, Self-Care Plan of Treatment: Continue wound VAC treatment until wound is healed Continue previous antibiotic therapy Prognosis: Good Rehab Potential: Good I certify that the patient requires SNF services: No Overall status at discharge: patient is progressing back to baseline Discharge Orders: Discharge Order (Routine); Ordered 07/29/21 Ordered By: Marizol Chong Pending Pending Pending: Resuscitation Status Resuscitate (Full Code) Diet Consistent Carbohydrate Diet Start TueJul 22 1007 Acetaminophen (Acetaminophen 325 Mg Tablet) 650 mg PO Q4HP PRN; Protocol PRN Reason: Per Pain Protocol Last Admin: 07/28/21 22:24 Dose: 650 mg Documented by: Admin: 07/27/21 21:52 Dose: 650 mg Documented by: Admin: 07/27/21 14:27 Dose: 650 mg Documented by: Admin: 07/26/21 22:14 Dose: 650 mg Documented by: Admin: 07/26/21 18:03 Dose: 650 mg Documented by: MARY LOU Admin: 07/26/21 01:08 Dose: 650 mg Documented by: Admin: 07/25/21 09:25 Dose: 650 mg Documented by: Admin: 07/25/21 03:15 Dose: 650 mg Documented by: Admin: 07/24/21 20:38 Dose: 650 mg Documented by: Admin: 07/24/21 13:05 Dose: 650 mg Documented by: Admin: 07/24/21 05:26 Dose: 650 mg Documented by: Admin: 07/24/21 00:10 Dose: 650 mg Documented by: Admin: 07/23/21 19:36 Dose: 650 mg Documented by: Admin: 07/23/21 15:23 Dose: 650 mg Documented by: [email or web address] Admin: 07/23/21 10:23 Dose: 650 mg Documented by: Admin: 07/23/21 04:28 Dose: 650 mg Documented by: Admin: 07/22/21 21:33 Dose: 650 mg Documented by: TAYLOR Albuterol Sulfate (Albuterol Sulfate 200 Puff Inhaler) 2 puff INH Q4-6HP PRN PRN Reason: shortness of breath or wheezing Last Admin: 07/22/21 21:40 Dose: 2 puff Documented by: TAYLOR Diagnostic Test (Pha) (Accu-Chek 1 Each Strip) 1 each FS ACHS SCARLET Last Admin: 07/29/21 12:13 Dose: 1 each Documented by: Admin: 07/29/21 07:13 Dose: 1 each Documented by: Admin: 07/28/21 20:39 Dose: 1 each Documented by: Admin: 07/28/21 17:31 Dose: 1 each Documented by: [email or web address] Admin: 07/28/21 11:37 Dose: 1 each Documented by: Admin: 07/28/21 07:49 Dose: 1 each Documented by: Admin: 07/27/21 20:07 Dose: 1 each Documented by: Admin: 07/27/21 17:27 Dose: 1 each Documented by: Admin: 07/27/21 11:36 Dose: 1 each Documented by: Admin: 07/27/21 07:46 Dose: 1 each Documented by: Admin: 07/26/21 21:38 Dose: 1 each Documented by: Admin: 07/26/21 18:02 Dose: 1 each Documented by: MARY LOU Admin: 07/26/21 11:43 Dose: 1 each Documented by: MARY LOU Admin: 07/26/21 07:53 Dose: 1 each Documented by: MARY LOU Admin: 07/25/21 20:29 Dose: 1 each Documented by: Admin: 07/25/21 16:40 Dose: 1 each Documented by: [email or web address] Admin: 07/25/21 11:31 Dose: 1 each Documented by: Admin: 07/25/21 07:21 Dose: 1 each Documented by: Admin: 07/24/21 20:48 Dose: 1 each Documented by: Admin: 07/24/21 16:58 Dose: 1 each Documented by: Admin: 07/24/21 11:53 Dose: 1 each Documented by: Admin: 07/24/21 08:06 Dose: 1 each Documented by: Admin: 07/23/21 20:33 Dose: 1 each Documented by: Admin: 07/23/21 17:42 Dose: 1 each Documented by: Admin: 07/23/21 12:35 Dose: 1 each Documented by: Admin: 07/23/21 07:02 Dose: 1 each Documented by: Admin: 07/22/21 21:32 Dose: 1 each Documented by: Admin: 07/22/21 16:46 Dose: 1 each Documented by: Admin: 07/22/21 11:14 Dose: 1 each Documented by: IOANA Diltiazem HCl (Diltiazem 120 Mg Cap.Xl.24h) 120 mg PO BID SCAR[facility] Admin: 07/29/21 08:38 Dose: 120 mg Documented by: Admin: 07/28/21 20:39 Dose: 120 mg Documented by: Admin: 07/28/21 10:17 Dose: 120 mg Documented by: [email or web address] Admin: 07/27/21 20:47 Dose: 120 mg Documented by: Admin: 07/27/21 08:41 Dose: 120 mg Documented by: Admin: 07/26/21 21:38 Dose: 120 mg Documented by: Admin: 07/26/21 08:12 Dose: 120 mg Documented by: MARY LOU Admin: 07/25/21 20:36 Dose: 120 mg Documented by: Admin: 07/25/21 09:25 Dose: 120 mg Documented by: Admin: 07/24/21 20:38 Dose: 120 mg Documented by: Admin: 07/24/21 08:07 Dose: 120 mg Documented by: Admin: 07/23/21 20:46 Dose: 120 mg Documented by: Admin: 07/23/21 09:08 Dose: 120 mg Documented by: [email or web address] Admin: 07/22/21 21:33 Dose: 120 mg Documented by: TAYLOR Docusate Sodium (Docusate Sodium 100 Mg Capsule) 100 mg PO BID [facility] Last Admin: 07/29/21 08:38 Dose: 100 mg Documented by: Admin: 07/28/21 20:39 Dose: 100 mg Documented by: Admin: 07/28/21 10:18 Dose: Not Given Documented by: [email or web address] Admin: 07/27/21 20:47 Dose: Not Given Documented by: Admin: 07/27/21 08:41 Dose: 100 mg Documented by: Admin: 07/26/21 21:28 Dose: Not Given Documented by: Admin: 07/26/21 08:12 Dose: 100 mg Documented by: MARY LOU Admin: 07/25/21 20:48 Dose: 100 mg Documented by: Admin: 07/25/21 09:25 Dose: 100 mg Documented by: Admin: 07/24/21 20:38 Dose: 100 mg Documented by: Admin: 07/24/21 08:06 Dose: 100 mg Documented by: Admin: 07/23/21 20:46 Dose: 100 mg Documented by: Admin: 07/23/21 09:08 Dose: 100 mg Documented by: [email or web address] Admin: 07/22/21 21:33 Dose: 100 mg Documented by: TAYLOR Hydromorphone HCl (Hydromorphone 0.5 Mg/0.5 Ml Syringe) 0.5 mg IV Q2HP PRN; Protocol PRN Reason: Per Pain Protocol Last Admin: 07/22/21 17:28 Dose: 0.5 mg Documented by: Admin: 07/22/21 12:08 Dose: 0.5 mg Documented by: Admin: 07/22/21 10:34 Dose: 0.5 mg Documented by: HINA Insulin Human Lispro (Insulin Lispro 1 Unit/0.01 Ml Unit) 0 unit SQ ACHS SCARLET; Protocol Last Admin: 07/29/21 12:13 Dose: 6 units Documented by: Admin: 07/29/21 07:13 Dose: Not Given Documented by: [email or web address] Admin: 07/28/21 20:39 Dose: 2 units Documented by: Admin: 07/28/21 17:31 Dose: 6 units Documented by: Admin: 07/28/21 11:57 Dose: 6 units Documented by: [email or web address] Admin: 07/28/21 07:49 Dose: Not Given Documented by: Admin: 07/27/21 20:47 Dose: 4 units Documented by: Admin: 07/27/21 17:27 Dose: 6 units Documented by: Admin: 07/27/21 11:36 Dose: 6 units Documented by: Admin: 07/27/21 07:46 Dose: Not Given Documented by: Admin: 07/26/21 21:38 Dose: 4 units Documented by: Admin: 07/26/21 18:03 Dose: 6 units Documented by: MARY LOU Admin: 07/26/21 11:43 Dose: 6 units Documented by: MARY LOU Admin: 07/26/21 07:53 Dose: Not Given Documented by: MARY LOU Admin: 07/25/21 20:36 Dose: 6 units Documented by: Admin: 07/25/21 16:42 Dose: 10 units Documented by: [email or web address] Admin: 07/25/21 11:31 Dose: 4 units Documented by: [email or web address] Admin: 07/25/21 07:24 Dose: Not Given Documented by: [email or web address] Admin: 07/24/21 20:48 Dose: 6 units Documented by: Admin: 07/24/21 16:58 Dose: 6 units Documented by: Admin: 07/24/21 11:53 Dose: Not Given Documented by: Admin: 07/24/21 08:06 Dose: Not Given Documented by: Admin: 07/23/21 20:46 Dose: 4 units Documented by: Admin: 07/23/21 17:39 Dose: 6 units Documented by: Admin: 07/23/21 12:35 Dose: 4 units Documented by: Admin: 07/23/21 07:02 Dose: 2 units Documented by: Admin: 07/22/21 21:33 Dose: 4 units Documented by: Admin: 07/22/21 16:57 Dose: 6 units Documented by: Admin: 07/22/21 11:14 Dose: Not Given Documented by: IOANA Levothyroxine Sodium (Levothyroxine Sodium 112 Mcg Tablet) 112 mcg PO [facility] Admin: 07/29/21 05:48 Dose: 112 mcg Documented by: Admin: 07/28/21 06:00 Dose: 112 mcg Documented by: Admin: 07/27/21 05:53 Dose: 112 mcg Documented by: Admin: 07/26/21 07:47 Dose: 112 mcg Documented by: MARY LOU Admin: 07/25/21 07:19 Dose: 112 mcg Documented by: Admin: 07/24/21 08:07 Dose: 112 mcg Documented by: Admin: 07/23/21 06:56 Dose: 112 mcg Documented by: [email or web address] Pantoprazole Sodium (Pantoprazole 40 Mg Packet) 40 mg PO [facility] Admin: 07/29/21 07:10 Dose: 40 mg Documented by: Admin: 07/28/21 07:48 Dose: 40 mg Documented by: [email or web address] Admin: 07/27/21 07:45 Dose: 40 mg Documented by: Admin: 07/26/21 07:47 Dose: 40 mg Documented by: MARY LOU Admin: 07/25/21 07:19 Dose: 40 mg Documented by: Admin: 07/24/21 08:07 Dose: 40 mg Documented by: Admin: 07/23/21 06:56 Dose: 40 mg Documented by: [email or web address] Nebivolol [Bystolic] (10 Mg Tablet) 1 dose PO [facility] Admin: 07/28/21 20:40 Dose: 1 dose Documented by: Admin: 07/27/21 20:47 Dose: 1 dose Documented by: Admin: 07/26/21 21:39 Dose: 1 dose Documented by: Admin: 07/25/21 20:41 Dose: 1 dose Documented by: Admin: 07/24/21 20:39 Dose: 1 dose Documented by: Admin: 07/23/21 20:46 Dose: 1 dose Documented by: Admin: 07/22/21 21:35 Dose: 1 dose Documented by: TAYLOR Prednisone ([facility] 20 Mg Tablet) [facility] Admin: 07/29/21 08:38 Dose: 40 mg Documented by: Admin: 07/28/21 07:48 Dose: 40 mg Documented by: Admin: 07/27/21 07:45 Dose: 40 mg Documented by: Admin: 07/26/21 07:47 Dose: 40 mg Documented by: MARY LOU Admin: 07/25/21 09:25 Dose: 40 mg Documented by: Admin: 07/24/21 08:06 Dose: 40 mg Documented by: Admin: 07/23/21 09:08 Dose: 40 mg Documented by: [email or web address] Senna (Sennosides 1 Tablet) 2 tab PO [facility] Admin: 07/28/21 20:40 Dose: Not Given Documented by: Admin: 07/27/21 20:47 Dose: Not Given Documented by: Admin: 07/26/21 21:29 Dose: Not Given Documented by: Admin: 07/25/21 20:29 Dose: Not Given Documented by: Admin: 07/24/21 20:39 Dose: 2 tab Documented by: Admin: 07/23/21 20:46 Dose: 2 tab Documented by: Admin: 07/22/21 21:33 Dose: 2 tab Documented by: TAYLOR Sodium Chloride (0.9 % Sodium Chloride 10 Ml Syringe) 10 ml IV Q8 [facility] Admin: 07/29/21 05:16 Dose: Not Given Documented by: Admin: 07/28/21 20:41 Dose: Not Given Documented by: Admin: 07/28/21 16:51 Dose: Not Given Documented by: Admin: 07/28/21 05:21 Dose: Not Given Documented by: Admin: 07/27/21 21:46 Dose: Not Given Documented by: Admin: 07/27/21 12:33 Dose: Not Given Documented by: Admin: 07/27/21 05:53 Dose: Not Given Documented by: Admin: 07/26/21 21:43 Dose: Not Given Documented by: Admin: 07/26/21 14:24 Dose: Not Given Documented by: MARY LOU Admin: 07/26/21 05:51 Dose: Not Given Documented by: Admin: 07/25/21 20:30 Dose: Not Given Documented by: Admin: 07/25/21 13:22 Dose: Not Given Documented by: Admin: 07/25/21 04:29 Dose: Not Given Documented by: Admin: 07/24/21 20:40 Dose: Not Given Documented by: Admin: 07/24/21 13:07 Dose: Not Given Documented by: Admin: 07/24/21 05:30 Dose: Not Given Documented by: Admin: 07/23/21 21:37 Dose: 10 ml Documented by: Admin: 07/23/21 14:24 Dose: Not Given Documented by: [email or web address] Admin: 07/23/21 05:07 Dose: Not Given Documented by: Admin: 07/22/21 21:34 Dose: Not Given Documented by: Admin: 07/22/21 14:56 Dose: Not Given Documented by: IOANA Shift Summary 07/29/21 03:33 Shift Summary by Risa Leiva Primary Diagnosis: Excision of necrotic mass on right buttock Registration Status: Day of Hospitalization: 07/22/2021 Pertinent Medical Dx/Issues (may be more than one): Type 2 DM, Pulmonary hypertension, A-fib, anxiety, sleep apnea Interventions (O2, wounds, diuresis, etc): wear CPAP while sleeping Vital Signs with Trends: VSS on RA Meds (abo, pain, BP, etc): per eMAR, gave PRN Tylenol 650mg Q4H one time during this shift to control her pain Lines/Tubes: IV on right forearm with NS run @25ml/hr Oxygen needs (home use vs. current use): RA, do not use home oxygen Date of last BM: 07/27/2021 Elimination: voiding per bathroom, SBA Vent/Bipap/Cpap: Cpap @HS Trends (is the patient improving?): pt reported feeling better, wants to go home Activity: ad devan, walk from bed to bathroom and back by self, tolerated well, SBA Expected date of discharge: Tuesday07/29/2021, waiting insurance prove the wound vac Discharge Plan (needs, disposition, etc): home Pt is A&O x4, cooperative, she really hope can be discharged back to home today, perform ADL by self, SBA while using bathroom, dressing changed during this shift, patient tolerant well. Initialized on 07/29/21 03:33 - END OF NOTE
--- NOTE | 2021-07-31 14:38 | Operative Note ---
DATE OF OPERATION: 07/22/2021 PREOPERATIVE DIAGNOSIS: Necrotic ulceration, right medial buttock. POSTOPERATIVE DIAGNOSIS: Necrotic ulceration, right medial buttock. PROCEDURE: Wide excision of necrotic ulcerated mass measuring 6 x 4.5 x 4 cm from the right medial buttock. SURGEON: Marizol Chong M.D. FINDINGS: Large mass with central necrosis extending up to the ischial tuberosity with a tract extending into the right groin. DESCRIPTION OF PROCEDURE: Under general anesthesia, the patient was placed in the modified right lateral decubitus position. The area of the mass was prepped and draped in a sterile field. A wide elliptical incision was made surrounding the mass. The inflamed area measured 6 x 4.5 x 4 cm. Incision was carried out down to the deep subcutaneous fat. The ischial tuberosity could be felt but was not exposed. All of the central necrosis and surrounding tissue was removed. Because of the necrosis and inflammation, the cavity was left open. There was a tract extending from the cavity in a subcutaneous plane up into the right groin. A 1/4-inch [place] drain was placed in this area and was sutured in place. The cavity was packed with Exufiber. Dressing was placed. The patient tolerated the procedure well. She was turned to the supine position, extubated, and taken to the postanesthetic care unit in satisfactory condition. LCS:[email or web address] Job ID: [id number] Doc ID: [id number] Marizol Chong M.D.
== END 2021-07-29 14:50 | disposition home or self-care (01) | DRG 571 ==
LOC: SUR 08:03 → MEDSUR 11:00
PROVIDERS: ADMIT Family Medicine Adult Medicine; ATTEND Family Medicine Adult Medicine